=== PATIENT | male | born 1995 | race Caucasian/White ===

== ENCOUNTER 2024-04-02 15:03 | Emergency (ER) | payer SELFPAY ==
[2024-04-02 15:11] VITALS: BP 168/122
--- NOTE | 2024-04-02 15:36 | ED.GENMED ---
History of Present Illness
<Stefanie Virgen PA-C - Last Filed: 04/03/24 09:05>
General
Chief Complaint: Alcohol Problem
Source: patient
Exam Limitations: none
Time Seen by Provider: 04/02/24 15:35
Nursing documentation reviewed up to this point in time: agreed with
History of Present Illness
History of Present Illness:
29-year-old male with a past medical history of alcohol use disorder, high blood pressure, presenting to emergency department today with concerns of homelessness/alcohol intoxication. Patient arrives via EMS. Patient reports that his dad kicked
him out of the house today because he is alcoholic and his father called EMS who took him to the emergency department today. I called patient's contact number on file for his father, no one picked up after multiple calls. Patient states that he
drinks 3 times a week but sometimes will drink everyday. When asked how many drinks he has per day, he states 'that is not important and I will not answer that question.' Patient states that he does not want to go to rehab or seek treatment for
alcohol use disorder. Patient reports that his father has his wallet and that he does have his ID and that he does not have anywhere to go. Patient did have multiple drinks today. Patient requesting IV fluids. Patient denies chest pain,
shortness of breath, seizure-like activity, syncopal episodes.
Review of Systems
<Stefanie Virgen PA-C - Last Filed: 04/03/24 09:05>
Review of Systems
All Other Systems: ROS reviewed and negative except as documented in HPI and ROS
Phy Exam
<Stefnaie Virgen PA-C - Last Filed: 04/03/24 09:05>
Physical Exam
Physical Exam:
General: Patient mildly intoxicated and has a smell of alcohol on the breath
Skin: Warm and dry, no rashes or lesions
Head: Normocephalic, atraumatic
Eyes: Sclera non-icteric. EOMs intact. PERRLA.
Cardiac: Regular rate and rhythm, no murmurs
Pulm: Normal respiratory effort
Musculoskeletal: Patient able to ambulate without difficulty
Neuro: CN II-XII intact, no focal neurologic deficits.
Psychiatric: Appropriate mood and affect.
Scores
<Stefanie Virgen PA-C - Last Filed: 04/03/24 09:05>
Withdrawal Assessment of Alcohol
Withdrawal Assessment Completed?: Not applicable
Course
<Stefanie Virgen PA-C - Last Filed: 04/03/24 09:05>
Orders/Labs/Results
Orders:
Orders
04/02/24 15:17
Electrocardiogram (*1) Urgent
Reason for Study: Hypertension, Benign
04/02/24 15:18
EKG- Treatment ONCE
04/02/24 15:22
Alcohol Urgent
CMP [Comprehensive Metabolic Panel] Urgent
Complete Blood Count/With Diff Urgent
04/02/24 15:47
0.9% Sodium Chloride 1000 ml [Nss] 1,000 ml IV BOLUS
Abnormal Lab Results
04/02/24
15:22
MPV 10.6 H fL
(7.4-10.4)
Glucose 104 H mg/dl
(70-99)
Albumin 5.4 H g/dl
(3.5-5.0)
04/02/24 15:22
04/02/24 15:22
Vital Signs
Initial and Last Documented VS:
Initial Vital Signs
Temp Pulse Resp BP Pulse Ox
98.6 F 108 16 168/122 97
04/02/24 15:11 04/02/24 15:11 04/02/24 15:11 04/02/24 15:11 04/02/24 15:11
Last Documented Vital Signs
Temp Pulse Resp BP Pulse Ox
97.9 F 108 16 134/83 98
04/02/24 16:15 04/02/24 15:11 04/02/24 15:11 04/02/24 16:08 04/02/24 17:12
<Chad Ramsay DO - Last Filed: 04/02/24 19:38>
Orders/Labs/Results
Orders:
Orders
04/02/24 15:17
Electrocardiogram (*1) Urgent
Reason for Study: Hypertension, Benign
04/02/24 15:18
EKG- Treatment ONCE
04/02/24 15:22
Alcohol Urgent
CMP [Comprehensive Metabolic Panel] Urgent
Complete Blood Count/With Diff Urgent
04/02/24 15:47
0.9% Sodium Chloride 1000 ml [Nss] 1,000 ml IV BOLUS
Abnormal Lab Results
04/02/24
15:22
MPV 10.6 H fL
(7.4-10.4)
Glucose 104 H mg/dl
(70-99)
Albumin 5.4 H g/dl
(3.5-5.0)
04/02/24 15:22
04/02/24 15:22
Vital Signs
Initial and Last Documented VS:
Initial Vital Signs
Temp Pulse Resp BP Pulse Ox
98.6 F 108 16 168/122 97
04/02/24 15:11 04/02/24 15:11 04/02/24 15:11 04/02/24 15:11 04/02/24 15:11
Last Documented Vital Signs
Temp Pulse Resp BP Pulse Ox
97.9 F 108 16 134/83 98
04/02/24 16:15 04/02/24 15:11 04/02/24 15:11 04/02/24 16:08 04/02/24 17:12
<Stefanie Virgen PA-C - Last Filed: 04/03/24 09:05>
MDM/Problems Addressed
Differential Diagnosis Includes:
ddx include alcohol intoxication, alcohol use disorder, alcohol withdrawal
MDM/Problems Addressed:
Alcohol use disorder:
29-year-old male with a past medical history of alcohol use disorder, high blood pressure, presenting to emergency department today with concerns of homelessness/alcohol intoxication. Patient's father called EMS because patient has had increasing
problems with alcohol. Patient declining rehab or treatment for his alcohol use disorder. We offered him help in treatment multiple times and he declined. I tried getting in contact with patient's father via the contact for him on file, but no
one is picking up.
Chronic conditions affecting care:
n/a
Acute Exacerbation and/or Progression of Chronic Illness:
n/a
<Stefanie Virgen PA-C - Last Filed: 04/03/24 09:05>
*Critical Care Note
Total Time (30-74mins, 75-104mins- exclusive of procedures): Not Applicable
<Chad Ramsay DO - Last Filed: 04/02/24 19:38>
Update Note
Update Note:
6:30 PM patient left the emergency department without written instructions. He was given verbal instructions. Patient states he is going to find public transportation and go home. Although he did have an elevated alcohol level, patient appears to
be a chronic drinker. Regardless of his level, he is no longer clinically intoxicated and likely lives in this range. Despite multiple offers for drug and alcohol counseling and rehab placement, patient declined. Patient continued to deny any
suicidal thoughts. He is ambulating without difficulty and forming complete sentences without slurring.
Patient quickly returned back to the emergency department after leaving. Patient sat in his room for a little longer until he was able to find a ride. His friend picked him up.
ED Attending Note
<Stefanie Virgen PA-C - Last Filed: 04/03/24 09:05>
-
Portions of this chart may have been created with voice recognition software.� Occasional wrong word or��sound alike� substitutions may have occurred due to the inherent limitations of voice recognition software.
<Chad Ramsay, DO - Last Filed: 04/02/24 19:38>
ED Attending Note
Patient seen and examined by attending physician: Yes
I performed the substantive portion of visit, reviewed & personally made and approve the management plan that is documented in note by myself or LOVE.: Yes
ED Attending Note:
I have seen and evaluated the patient with a [id number] encounter. I have spoken to the advance practicer provider and involved in the medical history, the physical exam, medical decision making.
Evaluation and management service: agree unless noted differently below.
Results interpretation: agree unless noted differently below.
Focused HPI: 29-year-old male presenting for evaluation of alcohol intoxication. Patient denies suicidal homicidal thoughts. He acknowledges that he has a drinking problem. Patient states his father called 911 to kick him out of the house
Physical exam: Tearful. Mildly intoxicated. Ambulating without difficulty
Medical Decision Making: Patient requesting IV fluids. Will give IV fluids. Patient declining rehab evaluation. Wants patient started to sober up, we can discuss dispo options
Discharge Plan
Departure
Patient Disposition: Home (Routine Discharge)
Date of Disposition: 04/02/24
Time of Disposition: 19:38
Patient with high blood pressure during this ER visit?: Yes
Condition: Good
Discharge Problem:
Alcohol intoxication, Alcohol use disorder
Instructions: Drug Misuse and Addiction (DC), Alcohol Use Disorder (DC), BLOOD PRESSURE
Prescriptions:
No Action
No Current Medications
0
Referrals:
NONE,* [Family Provider] -
Activity Restrictions/Additional Instructions:
Please return to the emergency department should you experience chest pain, shortness of breath, seizure-like activity, palpitations, tremors, hallucinations, difficulty walking, suicidal or homicidal thoughts.
Interventions
Interventions:
*Risk Screen - Suicide Last Done: 04/02/24 18:49
*General Assessment Last Done: 04/02/24 18:49
*Neglect/Abuse Screening Last Done: 04/02/24 18:49
*Nursing Disposition Last Done: 04/02/24 19:38
ED- Neurological Assessment Last Done: 04/02/24 16:06
ED-Psychological Assessment Last Done: 04/02/24 16:06
Discharge Date and Time
Discharge Date/Time: 04/02/24 19:39
Print Language: UPPER SORBIAN
[2024-04-02 15:46] LABS: % Basophils 1.2 % (0-2); % Eosinophils 0.9 % (0-6); % Immature Granulocytes 0.3 % (0-0.5); % Lymphocytes 36.1 % (20.5-51.1); % Monocytes 7.8 % (1.7-9.3); % Neutrophils 53.7 % (42.2-75.2); Absolute Basophils 0.1 10^3/uL (0-0.2); Absolute Eosinophils 0.1 10^3/uL (0-0.7); Absolute Lymphocytes 2.7 10^3/uL (1.2-3.4); Absolute Monocytes 0.6 10^3/uL (0.1-0.6); Hematocrit 41.5 % (39.0-52.0); Hemoglobin 14.4 g/dL (13.0-18.0); Mean Corp Hgb Conc. 34.7 g/dL (33.0-37.0); Mean Corpuscular Hgb 28.7 pg (27.0-31.0); Mean Corpuscular Volume 82.8 fL (80.0-94.0); Mean Platelet Volume 10.6 fL (7.4-10.4); Nucleated Red Blood Cells % 0 % (-); Platelet Count 371 10^3/uL (130-400); Red Blood Cell Count 5.01 10^6/uL (4.70-6.10); Red Cell Dist. Width 14.1 % (11.5-14.5); White Blood Cell Count 7.5 10^3/uL (4.8-10.8)
[2024-04-02] MEDS: NSS 1000 IV (16:05)
[2024-04-02 16:08] VITALS: BP 134/83
[2024-04-02 16:09] LABS: ALT (SGPT) 43 U/L (0-50); AST (SGOT) 40 U/L (17-59); Albumin 5.4 g/dl (3.5-5.0); Alkaline Phosphatase 81 U/L (38-126); Blood Urea Nitrogen 14 mg/dl (9-20); Calcium 10.2 mg/dl (8.4-10.2); Carbon Dioxide 25 mmol/L (22-30); Chloride 107 mmol/L (98-107); Glucose 104 mg/dl (70-99); Sodium 144 mmol/L (135-145); Total Bilirubin 0.4 mg/dl (0.2-1.3); Total Protein 8.1 g/dl (6.3-8.2); eGFR > 60.00
[2024-04-02 16:21] LABS: Alcohol 289 mg/dl
== END 2024-04-02 19:39 | disposition home or self-care (01) ==
LOC: EMR 15:03
PROVIDERS: Emergency Medicine; EMERGENCY PHYSICIAN Student in an Organized Health Care Education/Training Program
DX: F10.129 Alcohol abuse with intoxication, unspecified (principal); I10 Essential (primary) hypertension; Z59.00 Homelessness unspecified
CPT/HCPCS: 99284; 96360; 80053; 82077; 85025; 93005